=== PATIENT | male | born 1940 | race Caucasian/White ===

== ENCOUNTER → 2020-04-13 | Outpatient (CLI) | payer MEDICARE, BC | END | disposition home or self-care (01) | LOC: Rad HDHVI 13:19 | PROVIDERS: ATTEND Internal Medicine Cardiovascular Disease | DX: I08.1 Rheumatic disorders of both mitral and tricuspid valves (principal); I10 Essential (primary) hypertension; R42 Dizziness and giddiness | CPT/HCPCS: 93306 ==

== ENCOUNTER 2020-12-02 07:09 | Day surgery (SDC) | payer MEDICARE, BC ==
[2020-12-02] VITALS (8 sets, daily range): BP systolic 125–167; BP diastolic 69–87
[~2020-12-02] VITALS: Ht 185.4 cm; Wt 88.5 kg
[~2020-12-02 07:09] MED LIST: ASPI-543 PO; FLEC1TAB PO; MAGN400T40 PO; SACU1TAB PO; TERA5CAP42 PO
[2020-12-02] MEDS ORDERED: ceFAZolin 1GM/50ML 50 ML IV ONE (07:42)
[2020-12-02] MEDS ORDERED: MIDAZOLAM HCL 2MG/2ML 2ml VIAL (1mg/ml) ONE (07:47)
[2020-12-02] MEDS ORDERED: fentaNYL CITRATE 100 MCG/2 ML VL ONE (07:47)
[2020-12-02] MEDS ORDERED: VANCOMYCIN HCL 1000 MG VL ONE (08:58)
[2020-12-02] MEDS ORDERED: LIDOCAINE 2%HCL (LOCAL ANESTH.) INJ 20ML MDV ONE ×2 (08:58→10:01)
[2020-12-02] MEDS ORDERED: IOHEXOL 350 MG/ML 100ML IJ ONE (10:11)
[2020-12-02] MEDS ORDERED: VANCOMYCIN 1GM/250ML 250 ML IV ONE (11:12)
== END 2020-12-02 13:35 | disposition home or self-care (01) ==
LOC: CATH 07:09
PROVIDERS: ATTEND Internal Medicine Cardiovascular Disease
DX: I42.0 Dilated cardiomyopathy (principal); I49.5 Sick sinus syndrome; I48.91 Unspecified atrial fibrillation; F32.9 Major depressive disorder, single episode, unspecified; I50.23 Acute on chronic systolic (congestive) heart failure; I47.2 Ventricular tachycardia; Z87.891 Personal history of nicotine dependence; Z20.822 Contact with and (suspected) exposure to COVID-19; Z98.890 Other specified postprocedural states; Z79.899 Other long term (current) drug therapy
CPT/HCPCS: 33249; 71045; 93005; C1769; C1882; C1887; C1892; C1894; C1895; C1898; J0690; J2250; J3010; J3370; Q9967; U0003; 99152; 99153

== ENCOUNTER → 2021-01-13 | Outpatient (CLI) | payer MEDICARE, BC | END | disposition home or self-care (01) | LOC: Rad HDHVI 10:46 | PROVIDERS: ATTEND Internal Medicine Cardiovascular Disease | DX: I08.3 Combined rheumatic disorders of mitral, aortic and tricuspid valves (principal); I71.2 Thoracic aortic aneurysm, without rupture; R42 Dizziness and giddiness; R06.02 Shortness of breath | CPT/HCPCS: 93306 ==

== ENCOUNTER → 2021-02-22 | Outpatient (CLI) | payer MEDICARE, BC ==
[2021-02-22 15:43] LABS: Albumin 3.3 g/dL (3.4-5.0); Basophils # (auto) 0 10 ^3/uL (0-0.2); Basophils % (auto) 0.8 % (0.0-2.0); Calcium 8.5 mg/dL (8.5-10.1); Eosinophils # (auto) 0.1 10 ^3/uL (0-0.8); Eosinophils % (auto) 1.9 % (0.0-7.0); Hematocrit 38.8 % (41.0-53.0); Lymphocytes # (auto) 1.3 10 ^3/uL (0.4-5.4); Lymphocytes % (auto) 22.5 % (10.0-50.0); Magnesium 3.3 mg/dL (1.6-2.6); Mean Corpuscular Hemoglobin 30.7 pg (28.0-32.0); Mean Corpuscular Hgb Conc. 33.4 g/dL (32.0-36.0); Mean Corpuscular Volume 92.2 fL (80.0-100.0); Monocytes # (auto) 0.5 10 ^3/uL (0-1.3); Monocytes % (auto) 7.9 % (0.0-12.0); Neutrophils % (auto) 66.9 % (37.0-80.0); Potassium 4.4 mmol/L (3.5-5.1); Red Blood Cells 4.21 10^6/uL (4.5-5.90); Red Cell Distribution Width 13.4 % (11.8-14.3)
[2021-02-22 15:47] LABS: BUN/Creatinine Ratio 25.7; Bilirubin, Total 0.4 mg/dL (0.2-1.0); Total Protein 6.4 g/dL (6.4-8.2)
== END | disposition home or self-care (01) ==
LOC: LAB 12:20
PROVIDERS: ATTEND Internal Medicine Cardiovascular Disease
DX: I50.23 Acute on chronic systolic (congestive) heart failure (principal)
CPT/HCPCS: 36415; 80053; 83735; 83880; 85025

== ENCOUNTER → 2021-03-12 | Emergency (ER) | payer MEDICARE, BC ==
[~2021-03-12] VITALS: Ht 185.4 cm; Wt 90.7 kg
[~2021-03-12] MED LIST changes: +ASPirin 81 mg TAB PO ONE; +SODIUM CHLORIDE 0.9% 1,000 ML IV ONE
[2021-03-12 13:28] LABS: Basophils # (auto) 0 10 ^3/uL (0-0.2); Basophils % (auto) 0.8 % (0.0-2.0); Eosinophils # (auto) 0.1 10 ^3/uL (0-0.8); Eosinophils % (auto) 1.3 % (0.0-7.0); Hemoglobin 13.6 g/dL (13.5-17.5); Lymphocytes # (auto) 1.2 10 ^3/uL (0.4-5.4); Lymphocytes % (auto) 20.4 % (10.0-50.0); Mean Corpuscular Hemoglobin 31.2 pg (28.0-32.0); Mean Corpuscular Hgb Conc. 33.2 g/dL (32.0-36.0); Mean Corpuscular Volume 93.9 fL (80.0-100.0); Monocytes # (auto) 0.3 10 ^3/uL (0-1.3); Monocytes % (auto) 5.4 % (0.0-12.0); Neutrophils # (auto) 4.1 10 ^3/uL (1.6-8.6); Neutrophils % (auto) 72.1 % (37.0-80.0); Red Blood Cells 4.36 10^6/uL (4.5-5.90); Red Cell Distribution Width 14.1 % (11.8-14.3); White Blood Cell 5.7 10^3/uL (4.4-10.8)
[2021-03-12 13:35] LABS: Albumin 3.6 g/dL (3.4-5.0); Calcium 8.3 mg/dL (8.5-10.1); Magnesium 3.4 mg/dL (1.6-2.6); Potassium 4.4 mmol/L (3.5-5.1)
[2021-03-12 13:41] LABS: BUN/Creatinine Ratio 14.6; Bilirubin, Total 0.8 mg/dL (0.2-1.0); Total Protein 6.8 g/dL (6.4-8.2)
[2021-03-12 14:19] LABS: Urine WBC None Seen /hpf (0 - 3)
[2021-03-12 14:41] LABS: Urine Bacteria NONE SEEN /hpf (None Seen); Urine Blood Negative /uL (Negative); Urine Specific Gravity 1.008 (1.001-1.035)
[2021-03-12 17:56] VITALS: BP 157/86
== END | disposition home or self-care (01) ==
LOC: ER 10:01
DX: F41.9 Anxiety disorder, unspecified (principal); I11.0 Hypertensive heart disease with heart failure; I50.9 Heart failure, unspecified; Z95.810 Presence of automatic (implantable) cardiac defibrillator
CPT/HCPCS: 36415; 71046; 80053; 81001; 83735; 84443; 84484; 85025; 85379; 93005; 96360; 96361; 99285; J7030

== ENCOUNTER → 2021-10-20 | Outpatient (CLI) | payer MEDICARE, BC ==
[~2021-10-20] MED LIST changes: -ASPirin 81 mg TAB PO ONE; -SODIUM CHLORIDE 0.9% 1,000 ML IV ONE
== END | disposition home or self-care (01) ==
LOC: Rad HDHVI 15:50
PROVIDERS: ATTEND Internal Medicine Cardiovascular Disease
DX: I08.1 Rheumatic disorders of both mitral and tricuspid valves (principal); I11.9 Hypertensive heart disease without heart failure; I27.20 Pulmonary hypertension, unspecified
CPT/HCPCS: 93306

== ENCOUNTER → 2022-01-27 | Outpatient (CLI) | payer MEDICARE, BC ==
[2022-01-27 16:35] LABS: Calcium 8.8 mg/dL (8.5-10.1); Magnesium 2.6 mg/dL (1.6-2.6); Potassium 4.2 mmol/L (3.5-5.1)
== END | disposition home or self-care (01) ==
LOC: Rad HDHVI 13:05
PROVIDERS: ATTEND Internal Medicine Cardiovascular Disease
DX: J44.9 Chronic obstructive pulmonary disease, unspecified (principal); M47.819 Spondylosis without myelopathy or radiculopathy, site unspecified; M19.019 Primary osteoarthritis, unspecified shoulder; Z95.0 Presence of cardiac pacemaker; Z79.899 Other long term (current) drug therapy
CPT/HCPCS: 36415; 71046; 80048; 83735

== ENCOUNTER → 2022-03-27 | Outpatient (CLI) | payer MEDICARE, BC ==
[~2022-03-27] MED LIST changes: +SODIUM CHLORIDE 0.9% 500 ML IV SCH
[2022-03-27 09:28] VITALS: BP 173/84
[2022-03-27 10:10] VITALS: BP 155/77
[2022-03-27 10:42] LABS: Urine Blood Negative /uL (Negative); Urine Specific Gravity 1.018 (1.001-1.035)
[2022-03-27 13:50] VITALS: BP 146/70
== END | disposition home or self-care (01) ==
LOC: Rad HDHVI 09:19
PROVIDERS: ATTEND Internal Medicine Cardiovascular Disease
DX: R94.4 Abnormal results of kidney function studies (principal); R42 Dizziness and giddiness; R51.9 Headache, unspecified; I12.9 Hypertensive chronic kidney disease with stage 1 through stage 4 chronic kidney disease, or unspecified chronic kidney disease; N39.0 Urinary tract infection, site not specified
CPT/HCPCS: 36415; 70470; 81003; 82565; 84520; 87086; 87088; 87186; G0463

== ENCOUNTER → 2022-04-19 | Outpatient (CLI) | payer MEDICARE, BC ==
[~2022-04-19] MED LIST changes: +MEROPENEM 1GM IVPB 100 ML IV ONE; +PIPERACILLIN-TAZO 4.5GM 100 ML IV ONE; -SODIUM CHLORIDE 0.9% 500 ML IV SCH
[2022-04-19 08:34] VITALS: BP 130/77
[2022-04-19 11:50] VITALS: BP 136/80
== END | disposition home or self-care (01) ==
LOC: CHF HDHVI 08:31
PROVIDERS: ATTEND Internal Medicine Cardiovascular Disease
DX: N39.0 Urinary tract infection, site not specified (principal); I12.9 Hypertensive chronic kidney disease with stage 1 through stage 4 chronic kidney disease, or unspecified chronic kidney disease; N18.9 Chronic kidney disease, unspecified
CPT/HCPCS: 96365; 96366; G0463; J2185

== ENCOUNTER → 2022-05-22 | Outpatient (CLI) | payer MEDICARE, BC ==
[~2022-05-22] MED LIST changes: +ALPR0.5T PO; +AMIO200T33 PO; +FINA5TAB4 PO; +LACT10PA2 PO; +LACT10SO3 PO; +LINA290C PO; +MAGN1CAP PO; -MEROPENEM 1GM IVPB 100 ML IV ONE; +PHEN-1044 PO; -PIPERACILLIN-TAZO 4.5GM 100 ML IV ONE; +POM; +RIVA10TA PO; +TAM04C PO
[2022-05-22 10:25] VITALS: BP 159/85
[2022-05-22 11:00] VITALS: BP 178/92
== END | disposition home or self-care (01) ==
LOC: Rad HDHVI 10:08
PROVIDERS: ATTEND Internal Medicine Cardiovascular Disease
DX: Z01.818 Encounter for other preprocedural examination (principal); R07.9 Chest pain, unspecified; Z95.0 Presence of cardiac pacemaker
CPT/HCPCS: 71046; 93005; G0463

== ENCOUNTER 2022-05-25 07:05 | Inpatient (IN) | payer MEDICARE, BC ==
[2022-05-22 13:13] LABS: Basophils # (auto) 0.1 10 ^3/uL (0-0.2); Basophils % (auto) 0.9 % (0.0-2.0); Eosinophils # (auto) 0.1 10 ^3/uL (0-0.8); Eosinophils % (auto) 1.5 % (0.0-7.0); Hematocrit 40.8 % (41.0-53.0); Hemoglobin 13.5 g/dL (13.5-17.5); Lymphocytes # (auto) 1.2 10 ^3/uL (0.4-5.4); Lymphocytes % (auto) 19.1 % (10.0-50.0); Mean Corpuscular Hemoglobin 30.9 pg (28.0-32.0); Mean Corpuscular Hgb Conc. 33.2 g/dL (32.0-36.0); Monocytes # (auto) 0.5 10 ^3/uL (0-1.3); Monocytes % (auto) 7.7 % (0.0-12.0); Neutrophils # (auto) 4.3 10 ^3/uL (1.6-8.6); Neutrophils % (auto) 70.8 % (37.0-80.0); Nucleated Red Blood Cells % 0.2 %; Red Blood Cells 4.38 10^6/uL (4.5-5.90); Red Cell Distribution Width 14.2 % (11.8-14.3); White Blood Cell 6.1 10^3/uL (4.4-10.8)
[2022-05-22 13:33] LABS: INR 1.06 (0.9-1.15); Partial Thromboplastin Time 27.3 sec (24.6-33.4)
[2022-05-22 13:44] LABS: Potassium 4.3 mmol/L (3.5-5.1)
[2022-05-22 13:49] LABS: BUN/Creatinine Ratio 14.3 (10.0-20.0); Calcium 8.6 mg/dL (8.5-10.1)
[2022-05-24] MEDS: ceFAZolin 1GM/50ML 50 ML IV SCH (22:15)
[~2022-05-25] VITALS: Ht 185.4 cm; Wt 81.2 kg
[2022-05-25] VITALS (11 sets, daily range): BP systolic 107–179; BP diastolic 71–96
[~2022-05-25 07:05] MED LIST changes: -ASPI-543 PO; -LACT10PA2 PO
[2022-05-25] MEDS ORDERED: VANCOMYCIN 1GM/250ML 250 ML IV ONE ×2 (11:37→11:45)
[2022-05-25] MEDS ORDERED: MIDAZOLAM HCL 2MG/2ML 2ml VIAL (1mg/ml) ONE ×2 (11:45→13:08)
[2022-05-25] MEDS ORDERED: fentaNYL CITRATE 100 MCG/2 ML VL ONE (11:45)
[2022-05-25] MEDS ORDERED: LIDOCAINE 2%HCL (LOCAL ANESTH.) INJ 10ml MDV ONE (11:53)
[2022-05-25] MEDS ORDERED: IODIXANOL 320MG/ML 100ML BTL IV ONE (11:54)
[2022-05-25] MEDS ORDERED: VANCOMYCIN HCL 1000 MG VL ONE (12:00)
[2022-05-25] MEDS ORDERED: HYDROmorphone HCL 2 MG/ML VL/or syr ONE (12:47)
[2022-05-25] MEDS ORDERED: NITROGLYCERIN 0.4 MG SL TAB SL PRN (14:15)
[2022-05-25] MEDS ORDERED: ACETAMINOPHEN 325 MG TAB PO PRN (14:15)
[2022-05-25] MEDS ORDERED: MORPHINE SULFATE INJ 2 MG/ml SYRG IV PRN (14:15)
[2022-05-25] MEDS ORDERED: HYDROcodone-ACET 5/325MG TAB PO PRN (14:15)
[2022-05-25] MEDS ORDERED: ALPRAZolam 0.5 MG TAB PO PRN (18:15)
[2022-05-25] MEDS ORDERED: LACTULOSE 20Gm/30ML SOLN PO PRN (18:15)
[2022-05-25] MEDS: ceFAZolin 1GM/50ML 50 ML IV SCH (21:41)
[2022-05-25] MEDS: SACUBITRIL-VALSARTAN 24mg/26mg TAB PO SCH (21:41)
[2022-05-25] MEDS ORDERED: TERAZOSIN HCL 5 MG CAP PO SCH (22:00)
[2022-05-26 05:00] VITALS: BP 104/62
[2022-05-26 09:00] VITALS: BP 93/55
[2022-05-26] MEDS: SACUBITRIL-VALSARTAN 24mg/26mg TAB PO SCH (10:00)
[2022-05-26] MEDS ORDERED: RIVAROXABAN 10 MG TAB PO SCH (10:00)
[2022-05-26] MEDS ORDERED: AMIODARONE HCL 200 MG TAB PO SCH (10:00)
[2022-05-26] MEDS ORDERED: FLECAINIDE ACETATE 50 MG TAB PO SCH (10:00)
[2022-05-26] MEDS ORDERED: MAGNESIUM OXIDE 400 MG TAB PO SCH (10:00)
[2022-05-26] MEDS ORDERED: FINASTERIDE 5 MG TAB PO SCH (10:00)
[2022-05-26] MEDS ORDERED: PHENAZOPYRIDINE HCL 100 MG TAB PO ONE (10:00)
[2022-05-26 13:00] VITALS: BP 118/82
[2022-05-26 17:00] VITALS: BP 91/54
[2022-05-26 17:24] VITALS: BP 91/54
[2022-05-26] MEDS ORDERED: TAMSULOSIN HYDROCHLORIDE 0.4 MG CAP PO SCH (18:00)
== END 2022-05-26 18:20 | disposition home or self-care (01) | DRG 265 ==
LOC: CATH 07:05 → TELE 14:20 → TELE-CENTR 15:58
PROVIDERS: ADMIT Internal Medicine Cardiovascular Disease; ATTEND Internal Medicine Cardiovascular Disease
PROC: 02HL3KZ Insertion of Defibrillator Lead into Left Ventricle, Percutaneous Approach (ICD-10-PCS; principal; 2022-05-25)
PROC: 02PA3MZ Removal of Cardiac Lead from Heart, Percutaneous Approach (ICD-10-PCS; 2022-05-25)
DX: T82.120A Displacement of cardiac electrode, initial encounter (principal); I50.22 Chronic systolic (congestive) heart failure; I42.0 Dilated cardiomyopathy; Z20.822 Contact with and (suspected) exposure to COVID-19; I49.5 Sick sinus syndrome; Y83.8 Other surgical procedures as the cause of abnormal reaction of the patient, or of later complication, without mention of misadventure at the time of the procedure; Y92.89 Other specified places as the place of occurrence of the external cause; Z95.810 Presence of automatic (implantable) cardiac defibrillator; Z86.79 Personal history of other diseases of the circulatory system
CPT/HCPCS: 33216; 33244; 36415; 71045; 80048; 85025; 85610; 85730; 93005; 99152; 99153; C1769; C1894; G0378; J0690; J2001; J2250; Q9967

== ENCOUNTER → 2023-03-01 | Outpatient (CLI) | payer MEDICARE, BC ==
[~2023-03-01] MED LIST changes: -TAM04C PO; +TAMS-35 PO
== END | disposition home or self-care (01) ==
LOC: Rad HDHVI 10:51
PROVIDERS: ATTEND Internal Medicine Cardiovascular Disease
DX: I34.0 Nonrheumatic mitral (valve) insufficiency (principal); I11.9 Hypertensive heart disease without heart failure; R00.2 Palpitations; I71.21 Aneurysm of the ascending aorta, without rupture
CPT/HCPCS: 93306

== ENCOUNTER → 2023-08-06 | Outpatient (CLI) | payer MEDICARE, BC | END | disposition home or self-care (01) | LOC: Rad HDHVI 12:07 | PROVIDERS: ATTEND Internal Medicine Cardiovascular Disease | DX: I65.22 Occlusion and stenosis of left carotid artery (principal); I10 Essential (primary) hypertension | CPT/HCPCS: 93880 ==

== ENCOUNTER → 2024-07-04 | Outpatient (CLI) | payer MEDICARE, BC ==
--- NOTE | 2024-07-09 14:17 | DVHSR ---
APPROVED REPORT EXAM: Two-dimensional and M-mode echocardiogram with Doppler and color Doppler. DIMENSIONS LVDd5.2 (3.8-5.7cm)LA (2D)4.0 (1.9-4.0cm)Aortic Root4.0 (2.0-3.7cm) LVDs3.8 (2.5-4.0cm)LA (MM) (1.9-4.0cm)Aortic Cusp Exc1.7 (1.5-2.0cm) EF (%) 55.0 (55-70%)Rt. Atrium4.0 (1.9-4.0cm)Asc. Aorta5.4 cm IVSd1.3 (0.7-1.1cm)RV (D) (1.8-2.4cm) PWd1.2 (0.7-1.1cm) Mitral Valve MitralMitral Stenosis E wave0.50m/sMV Mean GR.mmHg A wave0.90m/sMV Peak GR.mmHg E/A ratio0.62D MVAcm2 Aortic Valve Aortic ValveAortic Stenosis V10.80m/Didier Mean GR.4mmHg V21.30m/Didier Peak GR.7mmHg LVOT Diameter2.4 (1.8-2.4cm)Doppler AVA2.78cm2 Pulmonic Valve V20.60m/s LEFT VENTRICLE The left ventricle is normal size. There is mild concentric left ventricular hypertrophy. The left ventricle is normal in structure and function. The Ejection Fraction is within normal limits. RIGHT VENTRICLE The right ventricle is normal size. ATRIA The left atrial size is normal. The right atrium size is normal. The interatrial septum is intact with no evidence for an atrial septal defect. MITRAL VALVE The mitral valve is normal in structure. Mitral regurgitation is mild. PULMONIC VALVE The pulmonic valve is not well visualized. TRICUSPID VALVE The tricuspid valve is grossly normal. AORTIC VALVE The aortic valve is calcified but appears to open well. No aortic regurgitation is present. GREAT VESSELS The aortic root is dilated. The ascending aorta is dilated. PERICARDIAL EFFUSION There is no pericardial effusion. Conclusion PROSTHETIC AV WITH MILD CALCIFICATION EF 55% CONC LVH
== END | disposition home or self-care (01) ==
LOC: Rad HDHVI 09:56
PROVIDERS: ATTEND Internal Medicine Cardiovascular Disease
DX: I08.0 Rheumatic disorders of both mitral and aortic valves (principal); I77.819 Aortic ectasia, unspecified site; I50.43 Acute on chronic combined systolic (congestive) and diastolic (congestive) heart failure
CPT/HCPCS: 93306